=== PATIENT | female | born 1985 | race Caucasian/White ===

== ENCOUNTER → 2019-04-10 13:14 | Outpatient (BNVA) | payer MEDICAID, SELFPAY | PROVIDERS: Family Provider Nurse Practitioner; PCP Nurse Practitioner; Visit Provider Anesthesiology | DX: G89.29 Other chronic pain (principal); M54.5 Low back pain; M79.651 Pain in right thigh; M79.652 Pain in left thigh; M25.561 Pain in right knee; M25.562 Pain in left knee; Z79.891 Long term (current) use of opiate analgesic | CPT/HCPCS: 99214 ==

== ENCOUNTER → 2019-04-25 10:25 | Outpatient (BNVA) | payer MEDICAID, SELFPAY | PROVIDERS: Family Provider Nurse Practitioner; PCP Nurse Practitioner; Visit Provider Internal Medicine Rheumatology | DX: L40.50 Arthropathic psoriasis, unspecified (principal); Z79.899 Other long term (current) drug therapy | CPT/HCPCS: 36415; 80076; 82565; 85651; 86140 ==

== ENCOUNTER → 2019-04-25 10:39 | Outpatient (BNVA) | payer MEDICAID, SELFPAY | PROVIDERS: Family Provider Nurse Practitioner; PCP Nurse Practitioner; Visit Provider Internal Medicine Rheumatology | DX: L40.50 Arthropathic psoriasis, unspecified (principal); Z79.899 Other long term (current) drug therapy | CPT/HCPCS: 85025 ==

== ENCOUNTER → 2019-08-21 13:00 | Outpatient (BNVA) | payer MEDICAID, SELFPAY | PROVIDERS: Family Provider Nurse Practitioner; PCP Nurse Practitioner; Visit Provider Internal Medicine Rheumatology | DX: Z79.899 Other long term (current) drug therapy (principal) | CPT/HCPCS: 36415; 80053; 85025; 85651; 86140 ==

== ENCOUNTER → 2019-08-22 14:41 | Outpatient (BNVA) | payer MEDICAID, SELFPAY | PROVIDERS: Family Provider Nurse Practitioner; PCP Nurse Practitioner; Visit Provider Anesthesiology | DX: G89.29 Other chronic pain (principal); M54.42 Lumbago with sciatica, left side; M54.41 Lumbago with sciatica, right side; M25.561 Pain in right knee; M25.562 Pain in left knee; Z79.891 Long term (current) use of opiate analgesic | CPT/HCPCS: 99214 ==

== ENCOUNTER → 2019-10-16 14:34 | Outpatient (BNVA) | payer MEDICAID, SELFPAY | PROVIDERS: Family Provider Nurse Practitioner; PCP Nurse Practitioner; Visit Provider Internal Medicine | DX: L40.50 Arthropathic psoriasis, unspecified (principal); M25.561 Pain in right knee; M25.562 Pain in left knee; G89.29 Other chronic pain; Z79.899 Other long term (current) drug therapy | CPT/HCPCS: 99213 ==

== ENCOUNTER → 2019-10-24 10:22 | Outpatient (BNVA) | payer MEDICAID, SELFPAY | PROVIDERS: Family Provider Nurse Practitioner; PCP Nurse Practitioner; Visit Provider Anesthesiology | DX: G89.29 Other chronic pain (principal); M54.42 Lumbago with sciatica, left side; M54.41 Lumbago with sciatica, right side; M25.561 Pain in right knee; M25.562 Pain in left knee; Z79.891 Long term (current) use of opiate analgesic | CPT/HCPCS: 99214 ==

== ENCOUNTER 2019-10-24 11:10 | Outpatient (CLI) | payer MEDICAID, SELFPAY ==
--- NOTE | 2019-10-24 11:30 | XR_ITS ---
WS: [id number] RIGHT KNEE: 3 VIEW(S) TECHNIQUE: AP, oblique(s) and lateral. HISTORY: knee pain COMPARISON: 05/01/2018 No fracture or dislocation. No joint space narrowing or osteophytes. No joint effusion. No soft tissue abnormality. XR/XR knee RT 3V* [id number] IMPRESSION: Normal RIGHT knee.
--- NOTE | 2019-10-24 11:30 | XR_ITS ---
WS: [id number] LEFT HAND: 2 VIEW(S) TECHNIQUE: PA and lateral. HISTORY: hand pain COMPARISON: None available. No acute fracture or dislocation. No soft tissue or bone abnormality. Minimal interphalangeal joint space narrowing. No periostitis or subluxations. No erosions. XR/XR hand LT 2V [id number] IMPRESSION: Minimal interphalangeal joint space narrowing.
--- NOTE | 2019-10-24 11:30 | XR_ITS ---
WS: [id number] LEFT FOOT: 2 VIEW(S) TECHNIQUE: AP and lateral. HISTORY: foot pain COMPARISON: 12/03/2018 No acute fracture or dislocation. Normal tarsal/metatarsal alignment. No soft tissue abnormality or bone destruction. XR/XR foot LT 2V [id number] IMPRESSION: Normal LEFT foot.
--- NOTE | 2019-10-24 11:30 | XR_ITS ---
WS: [id number] LEFT KNEE: 3 VIEW(S) TECHNIQUE: AP, oblique(s) and lateral. HISTORY: knee pain COMPARISON: 05/01/2018 No fracture or dislocation. No joint space narrowing or osteophytes. No joint effusion. No soft tissue abnormality. XR/XR knee LT 3V* [id number] IMPRESSION: Normal LEFT knee.
--- NOTE | 2019-10-24 11:30 | XR_ITS ---
WS: [id number] RIGHT HAND: 2 VIEW(S) TECHNIQUE: PA and lateral. HISTORY: hand pain COMPARISON: None available. No acute fracture or dislocation. No soft tissue or bone abnormality. XR/XR hand RT 2V [id number] IMPRESSION: Normal RIGHT hand.
--- NOTE | 2019-10-24 11:30 | XR_ITS ---
WS: [id number] RIGHT FOOT: 3 VIEW(S) TECHNIQUE: AP and lateral. HISTORY: Pain. COMPARISON: 05/01/2018 No acute fracture or dislocation. Normal tarsal/metatarsal alignment. No soft tissue abnormality or bone destruction. XR/XR foot RT 2V [id number] IMPRESSION: Normal RIGHT foot.
--- NOTE | 2019-10-24 11:30 | XR_ITS ---
WS: [id number] PELVIS: AP VIEW SUBMITTED HISTORY: pelvis pain COMPARISON: 05/01/2018 Bones and soft tissues of the pelvis are intact. No fracture or dislocation. No erosions. XR/XR pelvis 1-2V* [id number] IMPRESSION: Negative pelvis.
== END 2019-10-24 11:11 | disposition home or self-care (01) ==
LOC: RADWPI 11:14
PROVIDERS: Family Provider Nurse Practitioner; PCP Nurse Practitioner; Visit Provider Internal Medicine
DX: M79.671 Pain in right foot (principal); M79.672 Pain in left foot; M79.642 Pain in left hand; M79.641 Pain in right hand; M25.562 Pain in left knee; M25.561 Pain in right knee; R10.2 Pelvic and perineal pain
CPT/HCPCS: 72170; 73120; 73562; 73620

== ENCOUNTER → 2019-11-15 08:50 | Outpatient (BNVA) | payer MEDICAID, SELFPAY | PROVIDERS: Family Provider Nurse Practitioner; PCP Nurse Practitioner; Visit Provider Obstetrics & Gynecology | DX: E28.2 Polycystic ovarian syndrome (principal) | CPT/HCPCS: 82951; 83036; 84146; 84443 ==

== ENCOUNTER → 2019-12-20 10:06 | Outpatient (BNVA) | payer MEDICAID, SELFPAY | PROVIDERS: Family Provider Nurse Practitioner; PCP Nurse Practitioner; Visit Provider Anesthesiology | DX: G89.29 Other chronic pain (principal); M54.42 Lumbago with sciatica, left side; M54.41 Lumbago with sciatica, right side; M25.561 Pain in right knee; M25.562 Pain in left knee; Z79.891 Long term (current) use of opiate analgesic | CPT/HCPCS: 99214 ==

== ENCOUNTER → 2020-01-15 10:01 | Outpatient (BNVA) | payer MEDICAID, SELFPAY | PROVIDERS: Family Provider Nurse Practitioner; PCP Nurse Practitioner; Visit Provider Anesthesiology | DX: G89.29 Other chronic pain (principal); M54.42 Lumbago with sciatica, left side; M54.41 Lumbago with sciatica, right side; M25.561 Pain in right knee; M25.562 Pain in left knee; Z79.891 Long term (current) use of opiate analgesic | CPT/HCPCS: 99214 ==

== ENCOUNTER → 2020-01-16 09:48 | Outpatient (BNVA) | payer MEDICAID, SELFPAY | PROVIDERS: Family Provider Nurse Practitioner; PCP Nurse Practitioner; Visit Provider Internal Medicine | DX: L40.50 Arthropathic psoriasis, unspecified (principal); Z79.899 Other long term (current) drug therapy; D89.89 Other specified disorders involving the immune mechanism, not elsewhere classified; M25.561 Pain in right knee; M25.562 Pain in left knee | CPT/HCPCS: 99213; 99214 ==

== ENCOUNTER 2020-02-25 17:21 | Emergency (ER) | payer BC, MEDICAID, SELFPAY ==
[2020-02-25 17:22] VITALS: BP 173/105; PULSE 110; RESP 18; TEMP 36.9; O2SAT 99; BMI 51.7
--- NOTE | 2020-02-25 18:10 | W.ED.FEMALGU ---
HPI - Female Genitourinary General: Chief complaint: Vaginal Bleeding Stated complaint: EXCESSIVE VAGINAL BLEEDING Time Seen by Provider: 02/25/20 17:35 Source: patient Mode of arrival: ambulatory Limitations: no limitations History of Present Illness: HPI Narrative: 34-year-old female states she has had vaginal bleeding over the last 2 days. States she is passed blood clots. She states she has very irregular periods and has not had 1 in over a year. She has had a tubal ligation. Patient denies any pain. She denies any lightheadedness. She denies any vomiting or diarrhea. She denies any worsening improving factors. Associated symptoms: Deny abdominal pain, headache(s) or nausea Review of Systems Const: Denies: fever(s), chills, body aches or change in appetite Eyes: Denies: blurry vision or eye discomfort ENMT: Denies: throat pain or dental pain Card: Denies: chest pain Resp: Denies: dyspnea GI: Denies: abdominal pain, nausea, vomiting or diarrhea : Reports: vaginal bleeding Musc: Denies: neck pain or back pain Skin/Breast: Denies: rash Neuro: Denies: headache(s) Psych: Denies: depression Santana/Lymph: Denies: easy bruising All/Imm: Denies: urticaria PFSH ED PFSH: Medical History (Updated 02/25/20 @ 20:19 by Umesh Paez MD) Bilateral chronic knee pain Chronic low back pain Encounter for long-term use of opiate analgesic Gout due to renal impairment, right knee Morbid obesity with BMI of 50.0-59.9, adult Opioid contract exists Polycystic ovarian syndrome Psoriatic arthritis Surgical History H/O tubal ligation (03/08/11) Laparoscopic tubal fulguration. Performed by Dr. Leon at [facility] in [place], [place] History of tonsillectomy (08/30/17) Family History Brother Diabetes Mother Uterine cancer Grandmother Breast cancer Paternal Father Hypertension Social History Smoking and tobacco status: never smoked Second hand smoke exposure: Yes Alcohol intake: current Alcohol intake frequency: few times a month History of recent travel: No Physical Exam Const: COMMON NORMALS: no acute distress, patient oriented x3 and healthy appearing HENMT: COMMON NORMALS: normocephalic and atraumatic HEAD & SCALP: normocephalic and atraumatic Eye: COMMON NORMALS: Equal, round and reactive pupils present and EOMs intact bilaterally PUPIL: Yes Equal, round and reactive pupils present Neck/C-Spine: COMMON NORMALS: full ROM and supple Chest: COMMONS NORMALS: normal inspection of the chest and normal palpation of entire chest wall Resp: COMMON NORMALS: normal respiratory effort, No retractions, No use of accessory muscles and clear to auscultation bilaterally AUSCULTATION: clear to auscultation bilaterally Cardio: COMMON NORMALS: regular rate, regular rhythm and No murmurs present (Cardio) RATE: regular rate RHYTHM: regular rhythm GI: COMMON NORMALS: Normal to inspection, nondistended, normoactive bowel sounds present, Soft to palpation, non-tender and no masses PALPATION: Yes Soft to palpation Extremity: COMMON NORMALS: normal to inspection and full ROM Neuro: COMMON NORMALS: patient oriented x3, moves all extremities and no focal motor deficits Psych: COMMON NORMALS: mental status grossly normal, Normal thought process present and cooperative THOUGHT PROCESS: Normal thought process present Skin: COMMON NORMALS: no rashes or lesions noted and no wounds GENERAL SKIN EXAM: no rashes or lesions noted Course Vital Signs: Vital signs: Vital Signs Temperature 98.4 F 02/25/20 17:22 Pulse Rate 99 02/25/20 20:32 Respiratory Rate 18 02/25/20 20:32 Blood Pressure 154/123 02/25/20 20:32 Pulse Oximetry 100 02/25/20 20:32 MDM - Female MDM Narrative: Medical decision making narrative: 34-year-old presents with vaginal bleeding. Patient's hemoglobin here is normal. CT scan shows no acute findings. She is to follow-up with her OB in 2 to 4 days return to the ER if worsening. She understands and agrees to plan. Lab Data: Labs: Lab Results 02/25/20 02/25/20 Range/Units 18:40 18:40 WBC 11.6 H (4.0-10.0) 10^3/ uL RBC 4.52 (4.1-5.3) 10^6/u L Hgb 13.6 (11.5-15.3) g/dL Hct 42.8 (37.0-47.0) % MCV 94.7 (81-99) fL MCH 30.1 (28.0-34.0) pg MCHC 31.8 (30.0-36.0) g/dL RDW 13.2 (12.1-15.1) % Plt Count 343 (130-400) 10^3/c mm MPV 10.5 H (7.4-10.4) fL Neut % (Auto) 65.9 % Lymph % (Auto) 25.6 % Potter % (Auto) 5.6 % Eos % (Auto) 2.0 % Baso % (Auto) 0.6 % Neut # (Auto) 7.61 (1.8-7.7) 10^3/u L Lymph # (Auto) 3.0 (0.8-4.8) 10^3/u L Potter # (Auto) 0.7 (0.2-0.9) 10^3/u L Eos # (Auto) 0.2 (0.0-0.8) 10^3/u L Baso # (Auto) 0.1 (0.0-0.1) 10^3/u L Nucleated RBC % (a uto) 0 % Nucleated RBCs # 0.0 /100WBC HCG, Qual Negative (Negative) Imaging Data: CT Abd/Pel: Attestation: I personally reviewed and interpreted this imaging study as follows: Radiologist's impression: [address] [address] [address] Scan Report Signed Patient: Denise Brady Unit #: [id number] : 1985 Age/Sex: 34 / F ADM Date: 02/25/20 Loc: ER Room/Bed: Attending Dr: Ordering Provider/Ordering MD: Umesh Paez MD Date of Service: 02/25/20 Procedure(s): CT abdomen pelvis w con* [id number] Accession Number(s): [id number] Report Number: [id number] PROCEDURE INFORMATION: Exam: CT Abdomen And Pelvis With Contrast Exam date and time: 02/25/2020 7:37 PM Age: 34 years old Clinical indication: Other: Heavy bleeding; Abdominal pain; Localized; Lower; Prior surgery; Surgery type: Tubal; Additional info: Vag bleeding TECHNIQUE: Imaging protocol: Computed tomography of the abdomen and pelvis with intravenous contrast. Radiation optimization: All CT scans at this facility use at least one of these dose optimization techniques: automated exposure control; mA and/or kV adjustment per patient size (includes targeted exams where dose is matched to clinical indication); or iterative reconstruction. Contrast material: OMNI 300; Contrast volume: 95 ml; Contrast route: INTRAVENOUS (IV); COMPARISON: CT Abdomen/Pelvis [facility] [id number] 03/06/2013 3:15 PM RADIATION DOSE METRICS: Total DLP (mGy-cm): 1996.28 FINDINGS: Lungs: Multiple bilateral pulmonary nodules measuring up to 4 mm. Liver: Diffuse fatty infiltration of the liver. Gallbladder and bile ducts: Normal. No calcified stones. No ductal dilation. Pancreas: Normal. No ductal dilation. Spleen: Calcified granulomas in the spleen. Adrenal glands: Normal. No mass. Kidneys and ureters: Normal. No hydronephrosis. Stomach and bowel: Unremarkable. No obstruction. No mucosal thickening. Appendix: The appendix is visualized and is normal. Intraperitoneal space: Unremarkable. No free air. No significant fluid collection. Vasculature: Unremarkable. No abdominal aortic aneurysm. Lymph nodes: Unremarkable. No enlarged lymph nodes. Urinary bladder: Unremarkable as visualized. Reproductive: Stable 4.2 cm circumscribed fat containing lesion in the right ovary. The uterus and left ovary are unremarkable. Bones/joints: Unremarkable. No acute fracture. Soft tissues: Unremarkable. CT/CT abdomen pelvis w con* [id number] IMPRESSION: 1. No acute abnormality identified in the abdomen or pelvis. 2. Stable 4.2 cm right ovarian dermoid. 3. Pulmonary nodules measuring up to 4 mm. If the patient does not have known cancer, follow up should be based on clinical information because of the low risk of cancer in this age group. (Reference: Wen) Discharge Plan Discharge Patient Disposition: Home Clinical Impression: Vaginal bleeding Condition: Stable Prescriptions: New Naprosyn 500 mg tablet 500 mg PO BID PRN (Reason: pain) Qty: 20 RF: 0 No Action hydrocodone-acetaminophen 5-325 mg tablet 1 tab PO QID PRN (Reason: pain) 30 Days Qty: 120 RF: 0 Humira(CF) 40 mg/0.4 mL syringe kit See Rx Instructions SUBCUT .COMPLEX Qty: 2 RF: 5 diclofenac sodium [Voltaren] 1 % gel 2 g topical QID Qty: 100 RF: 2 (DME) cane Device See Rx Instructions .ROUTE .MEDSUPPLY Qty: 1 RF: 0 allopurinol 100 mg tablet 200 mg PO DAILY Qty: 60 RF: 5 folic acid 1 mg tablet 1 mg PO DAILY Qty: 30 RF: 5 meloxicam 15 mg tablet 15 mg PO DAILY Qty: 30 RF: 5 vitamin E 100 unit Capsule 100 unit PO DAILY RF: 0 Tylenol PM Extra Strength 25-500 mg Tablet 3 - 4 tab PO PRN RF: 0 gabapentin 100 mg capsule 100 mg PO BEDTIME RF: 0 Discharge Orders: Discharge ED (Routine); Ordered 02/25/20 Ordered By: Umesh Paez Referrals: Tomas Argueta MD [Physician] - 1-3 days Mahin Luciano, NUCLEAR FUEL ENRICHMENT TECHNICIAN-C [Primary Care Provider] - Discharge Diet: Advance as tolerated Discharge Activity: Resume usual activity Patient Instructions: Dysfunctional Uterine Bleeding (ED) Coding Level of Care Code ED E Mail System Administrator for Chg Fwd Exam Comprehensive
[2020-02-25] MEDS: naproxen 500 mg Tablet PO (18:41)
[2020-02-25 18:48] LABS: Basophils # 0.1 10^3/uL (0.0-0.1); Basophils % 0.6 %; Eosinophils # 0.2 10^3/uL (0.0-0.8); Hematocrit 42.8 % (37.0-47.0); Hemoglobin 13.6 g/dL (11.5-15.3); Lymphocytes % 25.6 %; Mean Corpuscular HGB Conc 31.8 g/dL (30.0-36.0); Mean Corpuscular Hemoglobin 30.1 pg (28.0-34.0); Mean Corpuscular Volume 94.7 fL (81-99); Mean Platelet Volume 10.5 fL (7.4-10.4); Monocytes # 0.7 10^3/uL (0.2-0.9); Monocytes % 5.6 %; Neutrophils # 7.61 10^3/uL (1.8-7.7); Neutrophils % 65.9 %; Nucleated Red Blood Cells % 0 %; Platelet Count 343 10^3/cmm (130-400); Red Blood Count 4.52 10^6/uL (4.1-5.3); Red Cell Distribution Width 13.2 % (12.1-15.1); White Blood Count 11.6 10^3/uL (4.0-10.0)
[2020-02-25 19:02] VITALS: BP 155/110; PULSE 103; RESP 18; O2SAT 100
[2020-02-25 19:20] LABS: HCG, Serum Qual Negative (Negative)
--- NOTE | 2020-02-25 19:22 | CTR_ITS ---
PROCEDURE INFORMATION: Exam: CT Abdomen And Pelvis With Contrast Exam date and time: 02/25/2020 7:37 PM Age: 34 years old Clinical indication: Other: Heavy bleeding; Abdominal pain; Localized; Lower; Prior surgery; Surgery type: Tubal; Additional info: Vag bleeding TECHNIQUE: Imaging protocol: Computed tomography of the abdomen and pelvis with intravenous contrast. Radiation optimization: All CT scans at this facility use at least one of these dose optimization techniques: automated exposure control; mA and/or kV adjustment per patient size (includes targeted exams where dose is matched to clinical indication); or iterative reconstruction. Contrast material: OMNI 300; Contrast volume: 95 ml; Contrast route: INTRAVENOUS (IV); COMPARISON: CT Abdomen/Pelvis o [id number] 03/06/2013 3:15 PM RADIATION DOSE METRICS: Total DLP (mGy-cm): 1996.28 FINDINGS: Lungs: Multiple bilateral pulmonary nodules measuring up to 4 mm. Liver: Diffuse fatty infiltration of the liver. Gallbladder and bile ducts: Normal. No calcified stones. No ductal dilation. Pancreas: Normal. No ductal dilation. Spleen: Calcified granulomas in the spleen. Adrenal glands: Normal. No mass. Kidneys and ureters: Normal. No hydronephrosis. Stomach and bowel: Unremarkable. No obstruction. No mucosal thickening. Appendix: The appendix is visualized and is normal. Intraperitoneal space: Unremarkable. No free air. No significant fluid collection. Vasculature: Unremarkable. No abdominal aortic aneurysm. Lymph nodes: Unremarkable. No enlarged lymph nodes. Urinary bladder: Unremarkable as visualized. Reproductive: Stable 4.2 cm circumscribed fat containing lesion in the right ovary. The uterus and left ovary are unremarkable. Bones/joints: Unremarkable. No acute fracture. Soft tissues: Unremarkable. CT/CT abdomen pelvis w con* [id number] IMPRESSION: 1. No acute abnormality identified in the abdomen or pelvis. 2. Stable 4.2 cm right ovarian dermoid. 3. Pulmonary nodules measuring up to 4 mm. If the patient does not have known cancer, follow up should be based on clinical information because of the low risk of cancer in this age group. (Reference: Wen) References: Wen Diallo et al. Guidelines for Management of Incidental Pulmonary Nodules Detected on CT Images: From the Fleischner Society 2017. Radiology. 2017;284(1):228-243. Radiation Dose CTDIVOL = (mGy): DLP = 1995.28 (mGy-cm)
[2020-02-25] MEDS: iohexol 300 mg/mL 100 mL Btl IV (19:45)
[2020-02-25 20:32] VITALS: BP 154/123; PULSE 99; RESP 18; O2SAT 100
--- NOTE | 2020-02-26 11:31 | DCPLANNER ---
oil well drilling manager had message to schedule a follow up appointment for patient with [facility]. oil well drilling manager called the [facility], spoke with Naomi, gave clinic patients information. oil well drilling manager was told that patients information would be printed and reviewed. Clinic will call patient with appointment information.
--- NOTE | 2020-02-28 11:07 | DCPLANNER ---
Patient has a follow up appointment scheduled with [facility] on , March 05, 2020 at 11:[address] López. Clinic will call patient with appointment information.
== END 2020-02-25 20:33 | disposition home or self-care (01) ==
PROVIDERS: Emergency Provider Emergency Medicine; PCP Nurse Practitioner
DX: N93.9 Abnormal uterine and vaginal bleeding, unspecified (principal); Z77.22 Contact with and (suspected) exposure to environmental tobacco smoke (acute) (chronic)
CPT/HCPCS: 12345; 74177; 84703; 85025; 99283; Q9967

== ENCOUNTER → 2020-03-04 09:49 | Outpatient (BNVA) | payer BC, MEDICAID, SELFPAY | PROVIDERS: Family Provider Nurse Practitioner; PCP Nurse Practitioner; Visit Provider Nurse Practitioner | DX: G89.29 Other chronic pain (principal); M54.5 Low back pain; L40.50 Arthropathic psoriasis, unspecified; M25.561 Pain in right knee; M25.562 Pain in left knee; Z79.891 Long term (current) use of opiate analgesic | CPT/HCPCS: 99213; 99214 ==

== ENCOUNTER → 2020-03-18 11:55 | Outpatient (BNVA) | payer BC, MEDICAID, SELFPAY | PROVIDERS: Family Provider Nurse Practitioner; PCP Nurse Practitioner; Visit Provider Obstetrics & Gynecology | DX: Z12.4 Encounter for screening for malignant neoplasm of cervix (principal); E28.2 Polycystic ovarian syndrome; N92.0 Excessive and frequent menstruation with regular cycle | CPT/HCPCS: 88175 ==

== ENCOUNTER → 2020-04-23 10:32 | Outpatient (BNVA) | payer BC, MEDICAID, SELFPAY | PROVIDERS: Family Provider Nurse Practitioner; PCP Nurse Practitioner; Visit Provider Obstetrics & Gynecology | DX: E28.2 Polycystic ovarian syndrome (principal); N92.0 Excessive and frequent menstruation with regular cycle | CPT/HCPCS: 87635 ==

== ENCOUNTER 2020-04-28 10:50 | Inpatient (IN) | payer BC, MEDICAID, SELFPAY ==
[2020-04-23 11:50] VITALS: BMI 54.7
[2020-04-24 05:45] LABS: OR HCG Qualitative Urine Negative (Negative)
[2020-04-28] VITALS (22 sets, daily range): BP systolic 133–171; BP diastolic 76–102; PULSE 86–121; RESP 13–21; TEMP 36.2–37; O2SAT 92–97
[2020-04-28] MEDS: gabapentin 300 mg Capsule PO (06:43)
[2020-04-28] MEDS: heparin 5,000 unit/mL INJ 1 mL 5000 UNIT SUBCUT (06:44)
[2020-04-28] MEDS: ketorolac 30 mg/mL INJ IVP ×3 (06:44→19:54)
[2020-04-28] MEDS: sodium chloride 0.9% 1,000 ML 30 ML IV (06:45)
--- NOTE | 2020-04-28 06:53 | P.HPUD_ITS ---
Surgery/Procedure H&P Update DATE OF PROCEDURE: April 28, 2020 DATE H&P PERFORMED: 04/23/20 H&P UPDATE INFORMATION: I have reviewed H&P completed within last 30 days, I have examined patient prior to procedure, No changes to prior documentation and H&P is in [facility] EMR on date indicated PREOP DIAGNOSIS: Menorrhagia, Right dermoid cyst PLANNED PROCEDURE: Operation Date: 04/28/20 07:00 Proposed Procedures p Total Abdominal Hysterectomy 79789 E28.2 N92.0(Not Applicable) - Monty Leon MD s poss bri Salpingo Oophorectomy (Open)(Bilateral) - Monty Leon MD
--- NOTE | 2020-04-28 06:58 | P.ANESASSM_ITS ---
Pre-Anesthetic Assessment Pre-Anesthetic Assessment: Height/Weight: Height 1.73 m Weight 163.293 kg Temp Pulse Resp BP Pulse Ox 98 F 100 18 171/102 96 04/28/20 06:19 04/28/20 06:19 04/28/20 06:19 04/28/20 06:19 04/28/20 06:19 Preop Diagnosis: Menorrhagia, Right dermoid cyst Proposed Procedure: Operation Date: 04/28/20 07:00 Proposed Procedures p Total Abdominal Hysterectomy 07176 E28.2 N92.0(Not Applicable) - Monty Leon MD s poss bri Salpingo Oophorectomy (Open)(Bilateral) - Monty Leon MD Was Beta Timmy taken within 24 hours: N/A Was Clonidine taken within 24 hours: N/A Last intake: Intake Last Liquid Date 04/27/20 Last Solid Date 04/27/20 Social: Social History: No alcohol and No tobacco Exam: Pre-Anes Outpt Exam: alert, oriented x 3, clear to auscultation bilaterally and regular rate & rhythm Airway: Submandibular: WNL Cervical ROM: WNL MP: 2 CV/HEM: CV/HEM: HTN Metabolic: Metabolic: Morbid obesity Musc/skel: Musc/skel: Lower Back Pain and RA Anesthetic Plan: ASA status: 3 Anesthesia: General Risk of > 500 ml blood loss (7ml/kg in children): Yes, adequate IV access and fluids planned Meds/Allergies Current Medications: Current Medications Generic Name Dose Route Start Last Admin Trade Name Freq PRN Reason Stop Dose Admin Sodium Chloride 1,000 mls @ 30 ml s/hr 04/28/20 06:15 04/28/20 06:45 Sodium Chloride 0.9% IV 04/29/20 06:14 30 mls/hr .Q24H ERICA Administration PFSH Anesthesia PFSH: Medical History Bilateral chronic knee pain Chronic low back pain Encounter for long-term use of opiate analgesic Gout due to renal impairment, right knee Morbid obesity with BMI of 50.0-59.9, adult Opioid contract exists Polycystic ovarian syndrome Psoriatic arthritis Surgical History H/O tubal ligation (03/08/11) Laparoscopic tubal fulguration. Performed by Dr. Leon at [facility] in [place], [place] History of tonsillectomy (08/30/17) Family History Brother Diabetes Mother Uterine cancer Grandmother Breast cancer Paternal Father Hypertension Social History (Updated 04/27/20 @ 16:36 by Monty Leon MD) Smoking and tobacco status: never smoked Second hand smoke exposure: Yes Alcohol intake: current Alcohol intake frequency: few times a month History of recent travel: No Female Reproductive History: Date of last menstrual period: 02/25/20 Data Anesthesia Cardiac Studies: No Data to Display
[2020-04-28 07:01] LABS: Glucose Point of Care 101 mg/dL (70-110)
[2020-04-28 07:04] LABS: OR HCG Qualitative Urine Negative (Negative)
[2020-04-28] MEDS: ceFAZolin 3,000 MG in sodium chloride 0.9% (100 ml) 100 ML 200 MG IV (07:05)
[2020-04-28 07:06] LABS: Basophils # 0.1 10^3/uL (0.0-0.1); Basophils % 0.5 %; Eosinophils # 0.3 10^3/uL (0.0-0.8); Eosinophils % 2.4 %; Hemoglobin 12.7 g/dL (11.5-15.3); Lymphocytes % 34.5 %; Mean Corpuscular HGB Conc 31.8 g/dL (30.0-36.0); Mean Corpuscular Volume 94.3 fL (81-99); Monocytes # 0.8 10^3/uL (0.2-0.9); Monocytes % 7.1 %; Neutrophils # 6.39 10^3/uL (1.8-7.7); Neutrophils % 55.1 %; Nucleated Red Blood Cells % 0 %; Platelet Count 322 10^3/cmm (130-400); Red Blood Count 4.24 10^6/uL (4.1-5.3); Red Cell Distribution Width 13.8 % (12.1-15.1); White Blood Count 11.6 10^3/uL (4.0-10.0)
--- NOTE | 2020-04-28 10:15 | P.OP_ITS ---
Operative Report Date of procedure: April 28, 2020 Pre-op Diagnosis: Menorrhagia, Right dermoid cyst, Morbid obesity Post-op Diagnosis: Menorrhagia, Right dermoid cyst, Morbid Obesity Procedure Done: Total abdominal hysterectomy, right salpingo-oophorectomy, left salpingectomy Specimens removed/disposition: Uterus, cervix, right tube and ovary, left fallopian tube Surgeon: Monty Leon Executive Chef Assistant: None Anesthesia: General Estimated blood loss (mL): 500 IV fluids (mL): 1,500 Urine output (mL): 200 Complications: None Findings: Right dermoid cyst noted. Brief History: Patient is a 34-year-old female 2, para 2 who is status post tubal li gation. She has a longstanding history of polycystic ovarian syndrome with very infrequent cycles. She has intermittently taken hormonal control and been cycled with progesterone through the years. Currently, she declines the use of any hormonal method, stating that Depo-Provera can lead to weight gain and other hormonal control costs severe mood swings. She typically bleeds sporad ically with several days of heavy bleeding with no pattern unless she takes something to bring on a bleeding episode. In the past, she had a CT scan performed which had shown a suspected right dermoid cyst. In February [address] scan confirming the same findings of suspected right dermoid cyst which had mildly enlarged. With these problems, patient wished to proceed to hysterectomy with plan for removal of the right tube and ovary. Due to her lack of prolapse and her morbid obesity (360 pounds with a BMI of 54.7) she is not a candidate for vaginal or laparoscopic hysterectomy. As a result she is presenting for abdominal hysterectomy with removal of right ovary and tube. Procedure: Patient was taken to the operating room where general anesthesia was obtained. She was prepped and draped in usual sterile fashion dorsal supine position. Sequential compression boots have been placed prior to starting the case. Chanel catheter was inserted. A vertical lower abdominal incision was made with a knife and carried around to the left of the navel. This was carried down to the underlying fascia using electrocautery. Fascia was incised in the midline and extended superiorly and inferiorly. Rectus muscles were in the midline. Peritoneum was sharply entered. It was extended superiorly and inferiorly. A Bookwalter retractor was used for retraction purposes. The bowel was packed with wet laparotomy sponges. Uterus was identified and appeared normal. The right ovary was enlarged compared to the left ovary. The left ovary did have a polycystic appearance to it. Mid portions of both fallopian tubes were surgically absent. The uterus was grasped with Zee clamps and elevated. Starting on the right side, the round ligament was doubly clamped, cut, and suture ligated with 0 Vicryl suture. Broad ligament was opened and dissection carried over the lower uterine segment. A window was made in the medial leaf of the broad ligament. The right utero-ovarian ligament and vessels were clamped cut and then suture ligated with 0 Vicryl suture, freeing the ovary from the corner of the uterus. Due to the enlargement of the ovary, decision was made to go ahead and remove the ovary at that time. The right infundibulopelvic ligament was doubly clamped, cut, and then suture ligated with 0 Vicryl suture. It was tied with a free tie of 0 Vicryl suture. The ovary was then completely excised. The left round ligament was doubly clamped, cut, and suture ligated with 0 Vicryl suture. Broad ligament was opened and dissection carried over the lower uterine segment. Window was made in the medial aspect of the broad ligament. Straight clamps were placed across the utero-ovarian ligament and vessels. This was cut and then tied with a near and far stitch of 0 Vicryl suture, followed by a free tie of 0 Vicryl suture. Uterine vessels were skeletonized. Bladder was bluntly dissected off of the lower uterine segment. Curved clamps were placed at the level of the internal loss bilaterally. These were then individually cut and then tied with 0 Vicryl suture bilaterally. Using straight clamps, the remaining portion of the broad ligament and uterine vessels were clamped, cut, and suture-ligated bilaterally until the top of the vagina was reached. Curved clamps were placed under the cervix and the cervix amputated from the vagina. The corners of the vaginal cuff were closed with 0 Vicryl suture in a Ankita fashion bilaterally. The remaining portion of the vaginal cuff was reapproxima nayana using 0 Vicryl suture in interrupted [id number] fashion. Areas of bleeding were brought under control with electrocautery. She had minimal oozing at the junction of the bladder to the vagina. No specific area of bleeding could be identified. As a result Surgicel was applied to the area. The left ovary was inspected and had a polycystic appearance to it. The remaining portion of the left fallopian tube was grasped with a [place] clamp. The mesosalpinx was clamped with a Yasmin clamp and then the tube excised. Pedicle was tied with a near far stitch of 0 Vicryl suture. It was noted to be hemostatic. Pelvis was thoroughly irrigated and noted to be hemostatic. The packing was removed and the Bookwalter retractor removed. The fascia, rectus muscles, and peritoneum were reapproximated using looped 0 PDS suture in a running fashion as a mass closure. Subcutaneous layer was irrigated and noted to be hemostatic. It was reapproximated with interrupted and running stitches of 2-0 and 3-0 Vicryl suture. Skin was reapproximated using skin haroldo. Patient tolerated the procedure well. Sponge needle and instrument counts were correct. Drains: Chanel catheter Postoperative status: Patient was transferred recovery room in satisfactory condition.
--- NOTE | 2020-04-28 10:34 | SUR.PHASEI ---
1034- ORAL AIRWAY OUT, SIMPLE MASK IN PLACE AT 6LPM SAT 93%
[2020-04-28] MEDS: fentaNYL 50 mcg/mL INJ 2mL IVP (10:42)
[2020-04-28] MEDS: dextrose 5%-lactated ringers 1,000 ML 125 ML IV ×2 (12:41→22:56)
--- NOTE | 2020-04-28 14:10 | ANE.PACU2 ---
Inpatient post-anesthesia follow up: Airway intact: Yes Vital signs: Temperature 97.1 F Pulse Rate 88 Respiratory Rate 14 Blood Pressure 139/83 Pulse Oximetry 93 Oxygen Delivery Me thod Nasal Cannula Oxygen Flow Rate 2 Fraction of Inspir ed Oxygen Hydration adequate: Yes Nausea and vomiting: No Pain level: 2 Mental status: Baseline
[2020-04-28] MEDS: gabapentin 100 mg Capsule PO ×2 (16:49→20:41)
[2020-04-28] MEDS: HYDROcodone-acetaminophen 5-325 mg Tablet PO ×2 (17:33→22:59)
[2020-04-28] MEDS: docusate sodium 100 mg Capsule PO (17:33)
[2020-04-28] MEDS: heparin 5,000 unit/mL INJ 1 mL 7500 UNIT SUBCUT (17:35)
--- NOTE | 2020-04-28 22:24 | PC.NURSE ---
PT HAD IV IN RIGHT WRIST PIID AND IV IN LEFT HAND WITH IV MAINTENANCE FLUIDS RUNNING AT 125ML/HR AT START OF SWAGING MACHINE ADJUSTER'S SHIFT.
[2020-04-29] MEDS: ketorolac 30 mg/mL INJ IVP ×3 (00:52→15:23)
[2020-04-29 04:32] VITALS: BP 151/82; PULSE 122; RESP 20; TEMP 36.9; O2SAT 95
[2020-04-29 04:38] LABS: Hematocrit 33.9 % (37.0-47.0); Hemoglobin 10.8 g/dL (11.5-15.3); Mean Corpuscular HGB Conc 31.9 g/dL (30.0-36.0); Mean Corpuscular Hemoglobin 29.9 pg (28.0-34.0); Mean Corpuscular Volume 93.9 fL (81-99); Mean Platelet Volume 9.9 fL (7.4-10.4); Platelet Count 331 10^3/cmm (130-400); Red Blood Count 3.61 10^6/uL (4.1-5.3); Red Cell Distribution Width 13.7 % (12.1-15.1); White Blood Count 17.7 10^3/uL (4.0-10.0)
[2020-04-29] MEDS: heparin 5,000 unit/mL INJ 1 mL 7500 UNIT SUBCUT ×2 (05:07→17:50)
[2020-04-29] MEDS: HYDROcodone-acetaminophen 5-325 mg Tablet PO ×2 (05:07→11:38)
[2020-04-29] MEDS: dextrose 5%-lactated ringers 1,000 ML 125 ML IV ×3 (07:25→22:02)
[2020-04-29] MEDS: gabapentin 100 mg Capsule PO ×2 (08:30→22:03)
[2020-04-29] MEDS: docusate sodium 100 mg Capsule PO ×2 (08:30→17:52)
[2020-04-29] MEDS: allopurinol 100 mg Tablet 200 MG PO (08:30)
--- NOTE | 2020-04-29 10:04 | PM.PN ---
Subjective Subjective: Interval history: Patient denies complaints at this time. Denies much pain abdominally, but states she is having her usual hip and back pain related to arthritis. She denies nausea or vomiting. She denied shortness of breath or chest pains. She denies passing flatus. She denies any problems with urination. She denies lightheadedness or dizziness getting up to the bedside toilet. Vitals/I&O/Wt Last Vital Signs Temp 98.4 F 04/29/20 04:32 Pulse 122 H 04/29/20 04:32 Resp 20 H 04/29/20 04:32 BP 151/82 04/29/20 04:32 Pulse Ox 95 04/29/20 04:32 04/28/20 04/29/20 04/29/20 22:59 06:59 14:59 Intake Total 1767 / 3367 1250 / 1250 Output Total 375 / 1775 1450 / 3225 330 / 330 Balance 1392 / 1592 -1450 / 142 920 / 920 Physical Exam Const: COMMON NORMALS: no acute distress, average body habitus, alert and well nourished GENERAL APPEARANCE: well developed ORIENTATION/CONSCIOUSNESS: Yes oriented to person, Yes oriented to place and Yes oriented to time Resp: COMMON NORMALS: normal respiratory effort and clear to auscultation bilaterally AUSCULTATION: clear to auscultation bilaterally Cardio: COMMON NORMALS: regular rate, regular rhythm, No gallops present (Cardio), No murmurs present (Cardio) and No rub (Cardio) RATE: regular rate RHYTHM: regular rhythm GI: COMMON NORMALS: Soft to palpation, No hepatosplenomegaly present and no masses INSPECTION: Yes incision (Dressing is dry.) and Yes Abdominal panniculus present AUSCULTATION: Yes Hypoactive bowel sounds present (Minimal sounds) PALPATION: Yes Soft to palpation, Yes Tenderness to palpation present (GI) (Mild lower abdominal tenderness), Yes No hepatosplenomegaly present and No Hernia present : EXTERNAL FEMALE EXAM: No Hernia present Extremity: COMMON NORMALS: no calf tenderness NARRATIVE EXTREMITY EXAM: 1+ lower extremity edema bilaterally. SCDs in use. Neuro: SENSORIUM/ORIENTATION: Yes alert, Yes oriented to person, Yes oriented to place and Yes oriented to time Psych: COMMON NORMALS: normal affect MOOD & AFFECT: Yes euthymic mood Urinary Catheter Management^: Chanel: Cath Placed During This Visit: yes Urinary Catheter Date of Insertion: 04/28/20 Urinary Catheter Time of Insertion: 07:20 Data : 04/29/20 04:26 Micro: Microbiology 04/28/20 07:20 Urine Culture - Preliminary Urine Catheterized Gram Negative Rods A&P Assessment and plan (1) Menorrhagia: Postoperative day 1, status post NUNO, RSO. Patient is currently n.p.o. except ice chips and sips of water. She has minimal bowel sounds at this time. Once she has good bowel sounds, then she will be advanced to a clear liquid diet. No solid food until she is passing flatus. She has been taking oral pain medications and has been resumed on her usual home medications except for the meloxicam and naproxen due to her chronic pain and arthritis. Her pain has currently been controlled with Toradol and [place]. However, with increased activities, she may need to be switched to Percocet since she typically takes [place] as part of her pain management. Due to her obesity and limited mobility because of the surgery, she was started on subcutaneous heparin and is being continued on that. Ambulation has been encouraged. Status: Acute Qualifiers: Menorrhagia type: with irregular cycle Qualified Code(s): N92.1 - Excessive and frequent menstruation with irregular cycle (2) Elevated blood pressure reading: Since surgery, she has had multiple elevated blood pressures. On further questioning, she denies having problems with elevated blood pressures at her doctor's visits. However, on review of blood pressures in the computer system, she has had elevated blood pressures dating back to April 2019. Based upon this, she may actually have hypertension. She is also had elevated heart rate with the elevated blood pressures. Again on review she has had elevated heart rate in the past as well. At this point, blood pressures have been high enough at times that I am starting her on medication. Because of the elevated heart rate as well, I am starting her on metoprolol. Status: Acute Attestations Medical Necessity Statement*: Patient is currently with minimal bowel sounds and is only taking ice chips and sips of water. Coding Level of Care Code Acute Chair Trimmer for Francisco Tate Diagnoses Menorrhagia N92.1 Menorrhagia type: with irregular cycle Elevated blood pressure reading R03.0
[2020-04-29 10:10] VITALS: BP 151/96; PULSE 113; RESP 20; TEMP 37; O2SAT 95
[2020-04-29] MEDS: cephALEXin 500 mg Capsule PO ×3 (11:40→22:02)
[2020-04-29] MEDS: metoprolol succinate ER (24 HR) 50 mg Tablet PO (12:17)
[2020-04-29 15:22] VITALS: RESP 20
[2020-04-29] MEDS: oxyCODONE-APAP 5-325 mg Tablet PO ×2 (15:22→22:07)
[2020-04-29 16:45] VITALS: BP 150/90; PULSE 97; RESP 22; TEMP 36.8; O2SAT 95
[2020-04-29] MEDS: diphenhydrAMINE 25 mg Capsule PO (22:03)
[2020-04-29 22:07] VITALS: RESP 20
[2020-04-29 22:15] VITALS: BP 144/92; PULSE 100; RESP 20; TEMP 37.2
[2020-04-30] MEDS: acetaminophen 325 mg Tablet 650 MG PO (02:48)
[2020-04-30 05:00] VITALS: BP 161/91; PULSE 91; RESP 20; TEMP 36.9
[2020-04-30 05:41] VITALS: RESP 18
[2020-04-30] MEDS: oxyCODONE-APAP 5-325 mg Tablet PO ×2 (05:41→12:09)
[2020-04-30] MEDS: heparin 5,000 unit/mL INJ 1 mL 7500 UNIT SUBCUT (05:46)
[2020-04-30] MEDS: gabapentin 100 mg Capsule PO (09:50)
[2020-04-30] MEDS: allopurinol 100 mg Tablet 200 MG PO (09:50)
[2020-04-30] MEDS: cephALEXin 500 mg Capsule PO (09:50)
[2020-04-30] MEDS: docusate sodium 100 mg Capsule PO (09:50)
[2020-04-30] MEDS: metoprolol succinate ER (24 HR) 50 mg Tablet PO (10:10)
[2020-04-30 10:14] VITALS: BP 156/82; PULSE 112; RESP 18; TEMP 36.8
[2020-04-30 12:09] VITALS: RESP 18
--- NOTE | 2020-04-30 13:08 | PM.DCS ---
Discharge Providers Date of Admission: 04/28/20 10:50 Date of Discharge: April 30, 2020 Attending Provider at Admission: Monty Leon MD Attending Provider at Discharge: Monty Leon MD Primary Care Provider: SAMMY Lopez Diagnoses at Discharge Discharge Diagnosis (1) Menorrhagia: Status: Acute Qualifiers: Menorrhagia type: with irregular cycle Qualified Code(s): N92.1 - Excessive and frequent menstruation with irregular cycle (2) Hypertension: Status: Acute (3) Psoriatic arthritis: Status: Acute (4) Acute cystitis: Status: Resolved Reason for Visit Reason for Visit: polycystic ovary syndrome Hospital Course Hospital Course Patient is a 34-year-old female 2, para 2 who is status post tubal ligation. She presented with a longstanding diagnosis of polycystic ovarian syndrome with very infrequent cycles. She has intermittently taken hormonal control or been cycled with progesterone through the years due to amenorrhea. She is currently declining the use of any hormonal methods for regulating her cycle due to problems with control in the past. This includes weight gain associated with Depo-Provera and severe mood swings associated with other hormonal control. She currently has sporadic bleeding episodes that last for several days and are heavy when they occur. During some of her evaluations in the past, she had been identified as having a cyst in the right ovary which had an appearance consistent with a dermoid cyst. At this point, she wishes to proceed with a hysterectomy and removal of the right tube and ovary. Patient was taken for same-day surgery and had a total abdominal hysterectomy with right salpingo-oophorectomy and left salpingectomy performed. The cyst was opened during surgery and confirmed as being a dermoid cyst of the right ovary. Following surgery patient did well. Day 1 Patient reported that her surgical pain was well controlled but she was having her usual hip and back pain related to her arthritis. She was denying nausea or vomiting. She denies shortness of breath or chest pains. She was denying lightheadedness or dizziness with getting out of bed. She was not passing flatus at that time. Chanel catheter had been removed previously and she was urinating without difficulty. Activities were increased during the day. Later in the day she had improved bowel sounds and was started on a clear liquid diet at which was advanced to a regular diet. During the hospital stay, she had been noted to have elevated blood pressures. And in review of past readings as an outpatient, she was felt to most likely have undiagnosed hypertension. She was started on metoprolol for blood pressure control while in the hospital. Postoperative Day 2. Patient reports tolerating a regular diet without nausea or vomiting. Reports ambulating without lightheadedness or dizziness. Reports passing flatus. Denies bowel movement. Reports urinating without difficulty. States pain has been controlled with taking 2 Percocets (5/325 mg) at a time. Physical Exam: See below Plan Patient has continued to have elevated blood pressures. Based on review, she meets criteria for hypertension. She has been started on Metoprolol ER 25 mg daily. She has been doing well from the surgical standpoint. However, she has been reporting more of her chronic back pain and has been requiring higher doses of pain medications than she was on before surgery from her chronic pain management. [facility] has been contacted regarding her pain medication as an outpatient after leaving the hospital. I have also increased her gabapentin dose while in the hospital. Patient had E. coli in her urine on pre-op urine culture. On admission, catheterized urine culture was obtained and urine grew >100,000 CFU E. coli. Patient was started on oral cephazolin in hospital and will be continued on this as an outpatient. Resume her other usual home medications. Pain is to come to the office next Monday for staple removal. Discharge instructions were discussed with her. Physical Exam Const: COMMON NORMALS: no acute distress, average body habitus, alert and well nourished GENERAL APPEARANCE: well developed ORIENTATION/CONSCIOUSNESS: Yes oriented to person, Yes oriented to place and Yes oriented to time Resp: COMMON NORMALS: normal respiratory effort and clear to auscultation bilaterally AUSCULTATION: clear to auscultation bilaterally Cardio: COMMON NORMALS: regular rate, regular rhythm, No gallops present (Cardio), No murmurs present (Cardio) and No rub (Cardio) RATE: regular rate RHYTHM: regular rhythm GI: COMMON NORMALS: Soft to palpation, No hepatosplenomegaly present and no masses INSPECTION: Yes incision (well approximated with haroldo present.) AUSCULTATION: Yes normoactive bowel sounds PALPATION: Yes Soft to palpation, Yes Tenderness to palpation present (GI) (lower abdomen), Yes No hepatosplenomegaly present and No Hernia present : EXTERNAL FEMALE EXAM: No Hernia present Extremity: COMMON NORMALS: no calf tenderness NARRATIVE EXTREMITY EXAM: 1+ lower extremity edema bilaterally Neuro: SENSORIUM/ORIENTATION: Yes alert, Yes oriented to person, Yes oriented to place and Yes oriented to time Psych: COMMON NORMALS: normal affect MOOD & AFFECT: Yes euthymic mood Urinary Catheter Management^: Chanel: Cath Placed During This Visit: yes Urinary Catheter Date of Insertion: 04/28/20 Urinary Catheter Time of Insertion: 07:20 Discharge Data Data Completed and Pending: Completed Studies During Hospitalization Category Date Time Status Pathology: Surgic al [PTH] Routine Pth 04/28/20 10:19 Completed 04/28/2020 CBC: WBC 11.6, Hgb 12.7, Hct 40.0, MCV 94.3, Plt 322,000 Urine culture: >100,000 CFU, E. coli 04/29/2020 CBC: WBC 17.7, Hgb 10.8, Hct 33.9, MCV 93.9, Plt 331,000 Vitals: Last Vital Signs Temp 98.2 F 04/30/20 10:14 Pulse 112 H 04/30/20 10:14 Resp 18 04/30/20 12:09 BP 156/82 04/30/20 10:14 Pulse Ox 95 04/29/20 16:45 Discharge Plan Discharge Patient Disposition: Home Condition: Stable Prescriptions: New metoprolol succinate 50 mg Tablet Extended Release 24 Hr 50 mg PO DAILY 30 Days Qty: 30 RF: 1 Continued diphenhydramine HCl [Benadryl Allergy] 25 mg tablet 100 mg PO TID PRN (Reason: Allergic Reaction) RF: 0 (DME) cane Device See Rx Instructions .ROUTE .MEDSUPPLY Qty: 1 RF: 0 tizanidine 4 mg capsule 4 mg PO .HS PRN (Reason: muscle spasticity) Qty: 30 RF: 1 folic acid 1 mg tablet 1 mg PO DAILY Qty: 30 RF: 5 meloxicam 15 mg tablet 15 mg PO DAILY Qty: 30 RF: 5 allopurinol 100 mg tablet 200 mg PO DAILY Qty: 60 RF: 0 Humira(CF) 40 mg/0.4 mL syringe kit See Rx Instructions SUBCUT .COMPLEX Qty: 2 RF: 5 vitamin E 100 unit Capsule 100 unit PO DAILY RF: 0 diphenhydramine-acetaminophen [Tylenol PM Extra Strength] 25-500 mg Tablet 3 - 4 tab PO PRN RF: 0 naproxen [Naprosyn] 500 mg tablet 500 mg PO BID PRN (Reason: pain) Qty: 20 RF: 0 Held hydrocodone-acetaminophen 5-325 mg tablet 1 tab PO QID PRN (Reason: pain) 30 Days Qty: 120 RF: 0 Hold Instructions: until after Percocet stopped Discontinued gabapentin 100 mg capsule 100 mg PO BEDTIME RF: 0 No Action gabapentin 100 mg capsule 100 mg PO TID 30 Days Qty: 90 RF: 0 Discharge Orders: Discharge Order (Routine); Ordered 04/30/20 Ordered By: Monty Leon Referrals: Monty Leon MD [Physician] - (Staple removal on 05/04/2020 at 10:00am Postoperative appointment on 05/11/2020, at 9:45am) Discharge Diet: Regular Discharge Activity: Limit activity as instructed Patient Instructions: OB Abdominal Surgery - [facility], OB Discharge Report, OB Food/Drug Interaction Guide Discharge Attestations Time Spent in Discharge Care*: less than 30 min Quality Metrics Clinical Quality Measures During this hospital stay, did patient experience: None Coding Level of Care Code Acute Chg FW DC note Exam Detailed Diagnoses Menorrhagia N92.1 Menorrhagia type: with irregular cycle Hypertension I10 Psoriatic arthritis L40.50 Acute cystitis N30.00
[2020-04-30 16:36] VITALS: BP 152/93; PULSE 94; RESP 18; TEMP 36.9; O2SAT 97
== END 2020-04-30 16:52 | disposition home or self-care (01) | DRG 742 ==
LOC: OBGYN 17:54
PROVIDERS: Anesthesiology; Admitting Provider Obstetrics & Gynecology; Family Provider Nurse Practitioner; PCP Nurse Practitioner; Visit Provider Obstetrics & Gynecology
PROC: 0UT90ZZ Resection of Uterus, Open Approach (ICD-10-PCS; CPT 58150; principal; 2020-04-28 07:00)
PROC: 0UT90ZZ Resection of Uterus, Open Approach (ICD-10-PCS; CPT 58720; 2020-04-28 07:00)
PROC: 0UT90ZZ Resection of Uterus, Open Approach (ICD-10-PCS; CPT 58700; 2020-04-28 07:00)
DX: N92.1 Excessive and frequent menstruation with irregular cycle (principal); Z68.43 Body mass index [BMI] 50.0-59.9, adult; N30.00 Acute cystitis without hematuria; D27.0 Benign neoplasm of right ovary; E66.01 Morbid (severe) obesity due to excess calories; E28.2 Polycystic ovarian syndrome; I10 Essential (primary) hypertension; B96.20 Unspecified Escherichia coli [E. coli] as the cause of diseases classified elsewhere; Z79.1 Long term (current) use of non-steroidal anti-inflammatories (NSAID); L40.50 Arthropathic psoriasis, unspecified; G89.29 Other chronic pain; M54.9 Dorsalgia, unspecified; Z79.891 Long term (current) use of opiate analgesic; Z98.51 Tubal ligation status; Z80.49 Family history of malignant neoplasm of other genital organs; Z80.3 Family history of malignant neoplasm of breast; Z80.41 Family history of malignant neoplasm of ovary; M10.40 Other secondary gout, unspecified site
CPT/HCPCS: 36415; 36416; 51702; 82962; 84703; 85025; 85027; 86850; 86900; 87077; 87086; 87186; 88307; 96365; 96372; 96374; J0131; J0330; J0690; J1170; J1644; J1885; J2704; J2710; J3010; J3490; J7030

== ENCOUNTER → 2020-06-04 13:03 | Outpatient (BNVA) | payer BC, MEDICAID, SELFPAY | PROVIDERS: Family Provider Nurse Practitioner; PCP Nurse Practitioner; Visit Provider Internal Medicine | DX: L40.50 Arthropathic psoriasis, unspecified (principal); M10.9 Gout, unspecified; Z79.899 Other long term (current) drug therapy | CPT/HCPCS: 99213; 99214 ==

== ENCOUNTER → 2020-06-24 10:35 | Outpatient (BNVA) | payer BC, MEDICAID, SELFPAY | PROVIDERS: Family Provider Nurse Practitioner; PCP Nurse Practitioner; Visit Provider Nurse Practitioner | DX: G89.29 Other chronic pain (principal); M54.5 Low back pain; M25.561 Pain in right knee; M25.562 Pain in left knee; M10.9 Gout, unspecified; E66.01 Morbid (severe) obesity due to excess calories; Z68.43 Body mass index [BMI] 50.0-59.9, adult; Z79.891 Long term (current) use of opiate analgesic | CPT/HCPCS: 99213 ==

== ENCOUNTER → 2020-08-19 11:03 | Outpatient (BNVA) | payer BC, MEDICAID, SELFPAY | PROVIDERS: Family Provider Nurse Practitioner; PCP Nurse Practitioner; Visit Provider Nurse Practitioner | DX: G89.29 Other chronic pain (principal); M54.5 Low back pain; M25.561 Pain in right knee; M25.562 Pain in left knee; L40.50 Arthropathic psoriasis, unspecified; E66.01 Morbid (severe) obesity due to excess calories; Z68.43 Body mass index [BMI] 50.0-59.9, adult; Z79.891 Long term (current) use of opiate analgesic; Z87.891 Personal history of nicotine dependence | CPT/HCPCS: 99214 ==

== ENCOUNTER → 2020-09-23 09:52 | Outpatient (BNVA) | payer BC, MEDICAID, SELFPAY | PROVIDERS: Family Provider Nurse Practitioner; PCP Nurse Practitioner; Visit Provider Nurse Practitioner | DX: G89.29 Other chronic pain (principal); M54.5 Low back pain; M25.561 Pain in right knee; M25.562 Pain in left knee; L40.50 Arthropathic psoriasis, unspecified; Z79.891 Long term (current) use of opiate analgesic | CPT/HCPCS: 99213 ==

== ENCOUNTER → 2020-11-25 13:17 | Outpatient (BNVA) | payer BC, MEDICAID, SELFPAY | PROVIDERS: Family Provider Nurse Practitioner; PCP Nurse Practitioner Family; Visit Provider Anesthesiology | DX: G89.29 Other chronic pain (principal); M25.561 Pain in right knee; M25.562 Pain in left knee; L40.50 Arthropathic psoriasis, unspecified; Z79.891 Long term (current) use of opiate analgesic; Z87.891 Personal history of nicotine dependence | CPT/HCPCS: 99213 ==

== ENCOUNTER → 2020-12-14 11:13 | Outpatient (BNVA) | payer BC, MEDICAID, SELFPAY | PROVIDERS: Family Provider Nurse Practitioner; PCP Nurse Practitioner Family; Visit Provider Internal Medicine | DX: M10.9 Gout, unspecified (principal); L40.50 Arthropathic psoriasis, unspecified; Z79.899 Other long term (current) drug therapy | CPT/HCPCS: 80053; 84550; 85025; 85651; 86140 ==

== ENCOUNTER → 2020-12-31 10:37 | Outpatient (BNVA) | payer BC, MEDICAID, SELFPAY | PROVIDERS: Family Provider Nurse Practitioner; PCP Nurse Practitioner Family; Visit Provider Internal Medicine | DX: L40.50 Arthropathic psoriasis, unspecified (principal); M10.9 Gout, unspecified; M25.561 Pain in right knee; M25.562 Pain in left knee; G89.29 Other chronic pain; R74.01 Elevation of levels of liver transaminase levels; Z87.891 Personal history of nicotine dependence | CPT/HCPCS: 99214 ==

== ENCOUNTER → 2021-04-15 10:17 | Outpatient (BNVA) | payer BC, MEDICAID, SELFPAY | PROVIDERS: Absent Provider Family Medicine; Family Provider Nurse Practitioner; PCP Nurse Practitioner Family; Visit Provider Internal Medicine | DX: L40.50 Arthropathic psoriasis, unspecified (principal); M10.9 Gout, unspecified; Z79.899 Other long term (current) drug therapy | CPT/HCPCS: 80053; 85025; 85651; 86140 ==

== ENCOUNTER → 2021-04-19 10:46 | Outpatient (BNVA) | payer BC, MEDICAID, SELFPAY | PROVIDERS: Family Provider Nurse Practitioner; PCP Nurse Practitioner Family; Visit Provider Internal Medicine | DX: L40.50 Arthropathic psoriasis, unspecified (principal); R74.01 Elevation of levels of liver transaminase levels; M10.9 Gout, unspecified; R26.9 Unspecified abnormalities of gait and mobility; Z87.891 Personal history of nicotine dependence | CPT/HCPCS: 99214 ==

== ENCOUNTER → 2021-07-26 10:01 | Outpatient (BNVA) | payer BC, MEDICAID, SELFPAY | PROVIDERS: Family Provider Nurse Practitioner; PCP Nurse Practitioner Family; Visit Provider Family Medicine | DX: G89.29 Other chronic pain (principal); M25.561 Pain in right knee; M25.562 Pain in left knee; L40.50 Arthropathic psoriasis, unspecified; M10.9 Gout, unspecified; Z79.899 Other long term (current) drug therapy | CPT/HCPCS: 80053; 80307; 84550; 85025; 85651; 86140 ==

== ENCOUNTER 2021-09-06 02:20 | Emergency (ER) | payer BC, MEDICAID, SELFPAY ==
[2021-09-06 02:50] VITALS: BP 189/103; PULSE 107; RESP 18; TEMP 36.7; O2SAT 97; BMI 58.1
--- NOTE | 2021-09-06 02:51 | W.ED.EPISTAX ---
HPI - Epistaxis General: Chief complaint: Epistaxis Stated complaint: Nose Bleed Time Seen by Provider: 09/06/21 02:22 Source: patient Mode of arrival: ambulatory Limitations: no limitations History of Present Illness: 36-year-old female states that she has had a nosebleed tonight out of her right nare. She states that she is able to get it stopped and started again she has placed a tampon in her nose but states she feels the blood running in the back of her throat. She states she has had history of nosebleeds but she is typically able to get them to stop she is on any blood thinners. Denies any injuries has no other complaints at this time. Associated symptoms: Deny fever(s), headache(s) or vomiting Review of Systems Const: Denies: fever(s), chills, body aches or change in appetite Eyes: Denies: blurry vision or eye discomfort ENMT: Reports: epistaxis Card: Denies: chest pain Resp: Denies: dyspnea GI: Denies: abdominal pain, nausea, vomiting or diarrhea : Denies: dysuria Musc: Denies: neck pain or back pain Skin/Breast: Denies: rash Neuro: Denies: headache(s) Psych: Denies: depression Santana/Lymph: Denies: easy bruising All/Imm: Denies: urticaria PFSH ED PFSH: Medical History Bilateral chronic knee pain Chronic low back pain Dermoid cyst of right ovary Removed 04/28/2020 Encounter for long-term use of opiate analgesic Gout due to renal impairment, right knee Morbid obesity with BMI of 50.0-59.9, adult Opioid contract exists Polycystic ovarian syndrome Psoriatic arthritis Surgical History H/O tubal ligation (03/08/11) Laparoscopic tubal fulguration. Performed by Dr. Leon at [facility] in [place], [place] History of tonsillectomy (08/30/17) S/P NUNO (total abdominal hysterectomy) (04/28/20) With right salpingo-oophorectomy, left salpingectomy. Diagnosis: Menorrhagia, right dermoid cyst, morbid obesity. Performed by Dr. Leon at [facility] in [place], [place]. Family History Brother Diabetes Mother Uterine cancer Grandmother Breast cancer Paternal Father Hypertension Social History Smoking and tobacco status: former smoker Second hand smoke exposure: Yes Alcohol intake: current Alcohol intake frequency: few times a month History of recent travel: No Female Reproductive History: Date of last menstrual period: 02/25/20 Physical Exam Const: COMMON NORMALS: no acute distress, patient oriented x3 and healthy appearing HENMT: COMMON NORMALS: normocephalic and atraumatic HEAD & SCALP: normocephalic and atraumatic OTHER: bleeding from right nare Eye: COMMON NORMALS: Equal, round and reactive pupils present and EOMs intact bilaterally PUPIL: Yes Equal, round and reactive pupils present Neck/C-Spine: COMMON NORMALS: full ROM and supple Chest: COMMONS NORMALS: normal inspection of the chest and normal palpation of entire chest wall Resp: COMMON NORMALS: normal respiratory effort, No retractions, No use of accessory muscles and clear to auscultation bilaterally AUSCULTATION: clear to auscultation bilaterally Cardio: COMMON NORMALS: regular rate, regular rhythm and No murmurs present (Cardio) RATE: regular rate RHYTHM: regular rhythm GI: COMMON NORMALS: Normal to inspection, nondistended, normoactive bowel sounds present, Soft to palpation, non-tender and no masses PALPATION: Yes Soft to palpation Extremity: COMMON NORMALS: normal to inspection and full ROM Neuro: COMMON NORMALS: patient oriented x3, moves all extremities and no focal motor deficits Psych: COMMON NORMALS: mental status grossly normal, Normal thought process present and cooperative THOUGHT PROCESS: Normal thought process present Skin: COMMON NORMALS: no rashes or lesions noted and no wounds GENERAL SKIN EXAM: no rashes or lesions noted Course Vital Signs: Vital signs: Vital Signs Temperature 98.0 F 09/06/21 02:50 Pulse Rate 107 H 09/06/21 02:50 Respiratory Rate 18 09/06/21 02:50 Blood Pressure 191/107 09/06/21 03:00 Pulse Oximetry 97 09/06/21 02:50 MDM - Epistaxis Medical Decision Making Patient presents here with a nosebleed I did have her evacuate the clot used Afrin and a nose clamp patient was observed here her bleeding is stopped she is stable for discharge she is to follow-up PCP and return if worsening. Discharge Plan Discharge Patient Disposition: Home Clinical Impression: Epistaxis Condition: Stable Prescriptions: No Action diphenhydramine HCl [Benadryl Allergy] 25 mg tablet 100 mg PO TID PRN (Reason: Allergic Reaction) 0RF cyclobenzaprine 10 mg tablet 10 mg PO .QHS Qty: 30 1RF elderberry fruit 200 mg capsule PO 0RF (DME) cane Device See Rx Instructions .ROUTE .MEDSUPPLY Qty: 1 0RF Rx Instructions: As directed hydrocodone-acetaminophen 7.5-325 mg tablet 1 tab PO Q6H PRN (Reason: pain) 30 Days Qty: 120 0RF naloxone 4 mg/actuation spray,non-aerosol 4 mg intranasal Q2M Qty: 1 0RF Rx Instructions: spray 1 dose into ONE nostril; alternate nostrils w each dose until help arrives Humira(CF) 40 mg/0.4 mL syringe kit See Rx Instructions SUBCUT .COMPLEX Qty: 2 5RF Rx Instructions: inject one - 40 mg/0.4 mL syringe every 2 weeks SUBCUT folic acid 1 mg tablet 1 mg PO DAILY Qty: 30 5RF meloxicam 15 mg tablet 15 mg PO DAILY Qty: 30 5RF gabapentin 100 mg capsule 100 mg PO TID 30 Days Qty: 90 2RF allopurinol 300 mg tablet 300 mg PO DAILY Qty: 30 3RF vitamin E 100 unit Capsule 100 unit PO DAILY 0RF diphenhydramine-acetaminophen [Tylenol PM Extra Strength] 25-500 mg Tablet 3 - 4 tab PO PRN 0RF Discharge Orders: Discharge ED (Routine); Ordered 09/06/21 Ordered By: Umesh Paez Discharge Diet: Advance as tolerated Discharge Activity: Resume usual activity Patient Instructions: Nosebleed (ED) Coding Level of Care Code ED Bail Bondsman for Francisco Fwd Exam Comprehensive
[2021-09-06] MEDS: oxymetazoline 0.05% Nasal Spray 15 mL 2 SPRAY NOSTRIL-B (02:53)
[2021-09-06 03:00] VITALS: BP 191/107
[2021-09-06] MEDS: HYDROcodone-acetaminophen 7.5-325 mg Tablet 1 TAB PO (03:00)
[2021-09-06] MEDS: cloNIDine 0.1 mg Tablet 0.2 MG PO (03:00)
[2021-09-06 03:55] VITALS: BP 171/100; PULSE 88; RESP 18; O2SAT 98
[2021-09-06] MEDS: metoprolol succinate ER (24 HR) 25 mg Tablet PO (03:55)
== END 2021-09-06 03:56 | disposition home or self-care (01) ==
PROVIDERS: Emergency Provider Emergency Medicine
DX: R04.0 Epistaxis (principal); Z87.891 Personal history of nicotine dependence
CPT/HCPCS: 99283

== ENCOUNTER → 2021-09-16 14:00 | Outpatient (BNVA) | payer BC, MEDICAID, SELFPAY | PROVIDERS: Visit Provider Internal Medicine | DX: L40.50 Arthropathic psoriasis, unspecified (principal); R74.01 Elevation of levels of liver transaminase levels; M10.9 Gout, unspecified | CPT/HCPCS: 99214 ==

== ENCOUNTER → 2021-12-17 10:22 | Outpatient (BNVA) | payer BC, MEDICAID, SELFPAY | PROVIDERS: PCP Nurse Practitioner Family; Visit Provider Internal Medicine | DX: L40.50 Arthropathic psoriasis, unspecified (principal); M10.9 Gout, unspecified; R74.01 Elevation of levels of liver transaminase levels | CPT/HCPCS: 80053; 84550; 85025; 85651; 86140 ==

== ENCOUNTER → 2022-04-12 13:13 | Outpatient (BNVA) | payer BC, MEDICAID, SELFPAY | PROVIDERS: PCP Family Medicine; Visit Provider Internal Medicine Rheumatology | DX: L40.50 Arthropathic psoriasis, unspecified (principal) | CPT/HCPCS: 80053; 84550; 85025; 85651; 86140 ==

== ENCOUNTER → 2022-05-12 10:22 | Outpatient (BNVA) | payer BC, MEDICAID, SELFPAY | PROVIDERS: PCP Family Medicine; Visit Provider Internal Medicine | DX: L40.50 Arthropathic psoriasis, unspecified (principal); M10.9 Gout, unspecified; R74.01 Elevation of levels of liver transaminase levels | CPT/HCPCS: 73562 ==

== ENCOUNTER → 2022-10-14 10:32 | Outpatient (BNVA) | payer MEDICAID, SELFPAY | PROVIDERS: PCP Family Medicine; Visit Provider Internal Medicine Rheumatology | DX: M10.9 Gout, unspecified | CPT/HCPCS: 80053; 85025; 85651; 86140 ==

== ENCOUNTER → 2023-03-08 11:31 | Outpatient (BNVA) | payer MEDICAID, SELFPAY | PROVIDERS: PCP Family Medicine; Visit Provider Family Medicine | DX: L40.50 Arthropathic psoriasis, unspecified (principal); M10.9 Gout, unspecified; R74.01 Elevation of levels of liver transaminase levels | CPT/HCPCS: 80053; 84550; 85025; 85651; 86140 ==

== ENCOUNTER 2024-10-15 14:17 | Outpatient (CLI) | payer MEDICAID, SELFPAY ==
[2024-10-15 15:36] LABS: Hematocrit 40.9 % (36-47); Hemoglobin 13.30 g/dL (11.27-16.99); Mean Corpuscular HGB Conc 32.5 g/dL (30-55); Mean Corpuscular Hemoglobin 29.7 pg (27-33); Mean Corpuscular Volume 91.3 fl (85-98); Nucleated Red Blood Cells % 0 %; Platelet Count 305 10^3/cmm (157-399); Red Blood Count 4.48 10^6/uL (3.85-5.65); White Blood Count 8.37 10^3/uL (3.29-11.43)
[2024-10-15 15:54] LABS: Alanine Aminotransferase 43 U/L (0-33); Albumin Level 4.1 g/dL (3.5-5.2); Alkaline Phosphatase 86 U/L (35-105); Aspartate Amino Transferase 22 U/L (0-32); Globulin 3.1 g/dL (1.3-4.6); Total Protein 7.2 g/dL (6.6-8.7); Uric Acid 8.7 mg/dL (2.4-5.7)
== END 2024-10-15 14:18 | disposition home or self-care (01) ==
LOC: LAB 14:19
PROVIDERS: PCP Family Medicine; Visit Provider Internal Medicine Rheumatology
DX: M10.9 Gout, unspecified (principal); L40.50 Arthropathic psoriasis, unspecified; Z79.899 Other long term (current) drug therapy
CPT/HCPCS: 36415; 80076; 82565; 84550; 85025; 85651; 86140